=== PATIENT | female | born 1955 | race Caucasian/White ===

== ENCOUNTER 2017-12-31 11:15 | Emergency (ER) | payer OTHER ==
[~2017-12-31] VITALS: Ht 162.6 cm; Wt 90.7 kg
[~2017-12-31 11:15] MED LIST: AMOX500 PO; AZAT50 PO; Bupropion HCl150 M2 PO; CEPH500 PO; CLAR500 PO; CLIN150 PO; CYCL10 PO; ETAN50I IM; FURO40 PO; HYDACE10B PO; HYDACE7.5 PO; HYDSUL200 PO; Hydrocodone-Ap1 EA20 PO; IBUP800 PO; LISI20 PO; LORA1 PO; LORA2 PO; Leflunomide20 MG PO; MS Contin15 MG PO; NEBI5 PO; OMEP20ER PO; OMEP40CA12 PO; ONDA4ODT MM; OXYC5 PO; POTCHL20ER PO; PROM25 PO; Prednisone20 MG PO; RXCLIN PO; RXONDA4ODT MM; SULTRIDS PO; TRICOR; Zestril40 MG PO
[2017-12-31 12:33] LABS: BASOPHILS ABSOLUTE AUTO 0.03 K/mm3 (0.00-0.23); BASOPHILS PERCENT AUTO 0 % (0-2); EOSINOPHILS ABSOLUTE AUTO 0.04 K/mm3 (0.00-0.68); EOSINOPHILS PERCENT AUTO 0 % (0-6); Hemoglobin 14.6 g/dL (11.5-16.0); IMMATURE GRAN ABSOLUTE AUTO 0.05 K/mm3 (0.00-0.10); IMMATURE GRAN PERCENT AUTO 1 % (0-1); LYMPHOCYTES ABSOLUTE AUTO 1.58 K/mm3 (0.84-5.20); LYMPHOCYTES PERCENT AUTO 16 % (21-46); MONOCYTES ABSOLUTE AUTO 0.44 K/mm3 (0.16-1.47); MONOCYTES PERCENT AUTO 5 % (4-13); Mean Corpuscular HGB 29.7 pg (26.0-34.0); Mean Corpuscular HGB Conc 34.8 g/dL (31.5-36.5); Mean Corpuscular Volume 85 fL (80-100); Mean Platelet Volume 10.2 fL (9.1-12.4); NEUTROPHILS ABSOLUTE AUTO 7.54 K/mm3 (1.96-9.15); NEUTROPHILS PERCENT AUTO 78 % (41-73); Platelet Count 241 K/mm3 (150-400); RDW Coefficient Variation 12.4 % (11.7-14.2); RDW Standard Deviation 38.2 fL (35.1-46.3); Red Blood Cell Count 4.92 M/mm3 (3.80-5.20); White Blood Cell Count 9.68 K/mm3 (4.00-11.30)
[2017-12-31 14:45] LABS: Albumin, Blood 3.7 g/dL (3.4-5.0); Albumin/Globulin Ratio 0.9 (0.8-1.8); Alk Phos 122 U/L (50-136); Anion Gap 9 mmol/L (6-16); Aspartate Aminotrans (AST/SGOT 89 U/L (12-37); Blood Urea Nitrogen 10 mg/dL (8-24); CO2, Blood 23 mmol/L (21-32); Calcium, Blood 8.9 mg/dL (8.5-10.1); Chloride, Blood 106 mmol/L (98-108); Creatinine, Blood 0.77 mg/dL (0.40-1.00); Globulin, Blood 4.2 g/dL (2.2-4.0); Glomerular Filtration Rate >60 (60-); Glucose, Blood 166 mg/dL (70-99); Potassium, Blood 3.5 mmol/L (3.5-5.5); Sodium, Blood 138 mmol/L (136-145); Total Protein, Blood 7.9 g/dL (6.4-8.2)
[2017-12-31 15:50] LABS: Source, Urine Clean Catch
[2017-12-31 15:53] LABS: Bilirubin, Urine Neg (Neg); Blood, Urine 3+ (Neg); Glucose Qualitative, Urine Neg (Neg); Ketones, Urine Neg (Neg); Leukocyte Esterase, Urine Neg (Neg); Nitrite, Urine Pos (Neg); Protein, Urine Neg (Neg); Specific Gravity, Urine 1.025 (1.003-1.022); Urobilinogen, Urine NORM (Normal)
[2017-12-31 16:01] LABS: Appearance, Urine Clear (Clear); Color, Urine Yellow (P-Yellow)
[2017-12-31 16:03] LABS: Bacteria Many /hpf; Squamous Epithelial Cells Rare /hpf (Few)
[2017-12-31 16:07] LABS: Alanine Aminotransfer (ALT/SGP 130 U/L (12-78)
== END 2017-12-31 17:42 | disposition home or self-care (01) ==
LOC: ER 11:15
PROVIDERS: Emergency Medicine
DX: R10.30 Lower abdominal pain, unspecified (principal); Z88.8 Allergy status to other drugs, medicaments and biological substances; Z79.899 Other long term (current) drug therapy; Z79.891 Long term (current) use of opiate analgesic; I10 Essential (primary) hypertension; Z90.49 Acquired absence of other specified parts of digestive tract
CPT/HCPCS: 36415; 74022; 80053; 81001; 83690; 85025; 99283

== ENCOUNTER 2019-10-28 09:16 | Day surgery (SDC) | payer OTHER ==
--- NOTE | 2019-10-28 10:42 | NUR ---
PT TO STEP. BAND AID D/I. NO SWELLING OR BRUISING NOTED. DENIES PAIN. LYINBG ON RIGHT SIDE.
--- NOTE | 2019-10-28 11:00 | NUR ---
REPORT TO HEATHER QUIROGA RN.
--- NOTE | 2019-10-28 12:13 | NUR ---
WRITTEN AND VERBAL D/C INSTRUCTIONS GIVEN TO PT WITH STATED UNDERSTANDING.
== END 2019-10-28 23:58 | disposition home or self-care (01) ==
LOC: US 09:16
DX: K73.9 Chronic hepatitis, unspecified (principal); I10 Essential (primary) hypertension; E66.9 Obesity, unspecified; L40.50 Arthropathic psoriasis, unspecified; Z86.010 Personal history of colon polyps; Z68.38 Body mass index [BMI] 38.0-38.9, adult; Z79.899 Other long term (current) drug therapy
CPT/HCPCS: 47000; 76942; 88307; 88313

== ENCOUNTER → 2019-10-28 | Outpatient (CLI) | payer OTHER ==
[2019-12-01 06:08] LABS: CU WEIGHT 2.84 mg (.); HEPATIC COPPER CONCENTRATION 17.6 ug/g (15.0-55.0)
== END | disposition home or self-care (01) ==
LOC: LAB 09:40 → LAB SHORT 09:40
PROVIDERS: Internal Medicine Gastroenterology
DX: R74.8 Abnormal levels of other serum enzymes (principal)
CPT/HCPCS: 82525

== ENCOUNTER → 2021-12-11 | Outpatient (CLI) | payer OTHER ==
[2021-12-12 08:11] LABS: A/G RATIO 1.4 (1.2-2.2); ALKALINE PHOSPHATASE, S 154 IU/L (44-121); ALT (SGPT) 43 IU/L (0-32); AST (SGOT) 35 IU/L (0-40); BASOS 0 % (Not Estab.); BILIRUBIN, TOTAL 0.6 mg/dL (0.0-1.2); BUN 10 mg/dL (8-27); BUN/CREATININE RATIO 14 (12-28); CALCIUM, SERUM 8.7 mg/dL (8.7-10.3); CARBON DIOXIDE, TOTAL 23 mmol/L (20-29); CHLORIDE, SERUM 107 mmol/L (96-106); CHOLESTEROL, TOTAL 191 mg/dL (100-199); CREATININE, SERUM 0.74 mg/dL (0.57-1.00); EGFR IF AFRICN AM 99 (>59); EGFR IF NONAFRICN AM 86 (>59); EOS 1 % (Not Estab.); EOS (ABSOLUTE) 0.1 x10E3/uL (0.0-0.4); GLOBULIN, TOTAL 2.8 g/dL (1.5-4.5); GLUCOSE, SERUM 111 mg/dL (65-99); HDL CHOLESTEROL 27 mg/dL (>39); HEMATOCRIT 39.9 % (34.0-46.6); HEMOGLOBIN 13.5 g/dL (11.1-15.9); IMMATURE GRANULOCYTES 0 % (Not Estab.); LDL CHOLESTEROL CALC 110 mg/dL (0-99); LYMPHS 27 % (Not Estab.); LYMPHS (ABSOLUTE) 2.1 x10E3/uL (0.7-3.1); MCHC 33.8 g/dL (31.5-35.7); MCV 86 fL (79-97); MONOCYTES 6 % (Not Estab.); MONOCYTES(ABSOLUTE) 0.5 x10E3/uL (0.1-0.9); NEUTROPHILS 66 % (Not Estab.); NEUTROPHILS (ABSOLUTE) 5.3 x10E3/uL (1.4-7.0); PLATELETS 217 x10E3/uL (150-450); POTASSIUM, SERUM 3.9 mmol/L (3.5-5.2); PROTEIN, TOTAL, SERUM 6.8 g/dL (6.0-8.5); RBC 4.66 x10E6/uL (3.77-5.28); RDW 13.5 % (11.7-15.4); SODIUM, SERUM 141 mmol/L (134-144); TRIGLYCERIDES 309 mg/dL (0-149); VLDL CHOLESTEROL CAL 54 mg/dL (5-40)
[2021-12-12 23:09] LABS: HEMOGLOBIN A1C 6.3 % (4.8-5.6)
== END ==
LOC: LAB SHORT 14:11
PROVIDERS: Hospitalist
DX: E78.1 Pure hyperglyceridemia (principal); I10 Essential (primary) hypertension; R73.9 Hyperglycemia, unspecified
CPT/HCPCS: 80053; 80061; 83036; 85025

== ENCOUNTER → 2022-07-30 | Outpatient (CLI) | payer OTHER ==
[2022-07-30 15:43] LABS: BASOPHILS ABSOLUTE AUTO 0.04 K/mm3 (0.00-0.23); BASOPHILS PERCENT AUTO 1 % (0-2); EOSINOPHILS ABSOLUTE AUTO 0.07 K/mm3 (0.00-0.68); EOSINOPHILS PERCENT AUTO 1 % (0-6); Hematocrit 45.8 % (33.0-51.0); Hemoglobin 15.9 g/dL (11.5-16.0); IMMATURE GRAN ABSOLUTE AUTO 0.02 K/mm3 (0.00-0.10); IMMATURE GRAN PERCENT AUTO 0 % (0-1); LYMPHOCYTES ABSOLUTE AUTO 2.81 K/mm3 (0.84-5.20); LYMPHOCYTES PERCENT AUTO 37 % (21-46); MONOCYTES ABSOLUTE AUTO 0.36 K/mm3 (0.16-1.47); MONOCYTES PERCENT AUTO 5 % (4-13); Mean Corpuscular HGB 30.2 pg (26.0-34.0); Mean Corpuscular HGB Conc 34.7 g/dL (31.5-36.5); Mean Corpuscular Volume 87 fL (80-100); Mean Platelet Volume 11.7 fL (9.1-12.4); NEUTROPHILS ABSOLUTE AUTO 4.32 K/mm3 (1.96-9.15); NEUTROPHILS PERCENT AUTO 57 % (41-73); Platelet Count 298 K/mm3 (150-400); RDW Standard Deviation 41.6 fL (35.1-46.3); Red Blood Cell Count 5.26 M/mm3 (3.80-5.20); White Blood Cell Count 7.62 K/mm3 (4.00-11.30)
[2022-07-30 15:58] LABS: Alanine Aminotransfer (ALT/SGP 95 U/L (12-78); Albumin, Blood 3.7 g/dL (3.4-5.0); Albumin/Globulin Ratio 0.9 (0.8-1.8); Alk Phos 134 U/L (50-136); Anion Gap 7 mmol/L (6-16); Aspartate Aminotrans (AST/SGOT 79 U/L (12-37); Bilirubin, Total 1.1 mg/dL (0.1-1.0); Blood Urea Nitrogen 11 mg/dL (8-24); Bun/Creatinine Ratio 11.6 (12.0-20.0); CHOL/HDL RATIO 8.1; CO2, Blood 24 mmol/L (21-32); Calcium, Blood 9.2 mg/dL (8.5-10.1); Chloride, Blood 110 mmol/L (98-108); Cholesterol 202 mg/dL (50-200); Creatinine, Blood 0.95 mg/dL (0.40-1.00); Glomerular Filtration Rate 67 (60-); Glucose, Blood 115 mg/dL (70-99); HDL Cholesterol 25 mg/dL (>39); LDL/HDL RATIO 5.2; Low Density Lipoprotein Chol 130 mg/dL (0-110); Potassium, Blood 4.1 mmol/L (3.5-5.5); Sodium, Blood 141 mmol/L (136-145); Total Protein, Blood 7.7 g/dL (6.4-8.2); Triglycerides 235 mg/dL (30-160); Very Low Density Lipoprot Chol 47 mg/dL (6-32)
== END | disposition home or self-care (01) ==
LOC: LAB 10:00 → LAB SHORT 10:00
PROVIDERS: Hospitalist
DX: E78.1 Pure hyperglyceridemia (principal); R53.83 Other fatigue
CPT/HCPCS: 80053; 80061; 84443; 85025; 85651

== ENCOUNTER → 2023-07-23 | Outpatient (CLI) | payer OTHER | END | disposition home or self-care (01) | LOC: LAB SHORT 08:54 → LAB 08:54 | DX: R73.9 Hyperglycemia, unspecified (principal) | CPT/HCPCS: 83036 ==

== ENCOUNTER → 2024-05-19 | Outpatient (CLI) | payer OTHER ==
[2024-05-19 16:18] LABS: Anion Gap 7 mmol/L (3-11); Blood Urea Nitrogen 12 mg/dL (8-24); Bun/Creatinine Ratio 13.7 (12.0-20.0); CHOL/HDL RATIO 6.4; CO2, Blood 28 mmol/L (21-32); Calcium, Blood 9.2 mg/dL (8.5-10.1); Chloride, Blood 107 mmol/L (98-108); Cholesterol 187 mg/dL (50-200); Creatinine, Blood 0.88 mg/dL (0.40-1.00); Glomerular Filtration Rate 72 (60-); Glucose, Blood 152 mg/dL (70-99); HDL Cholesterol 29 mg/dL (>39); LDL/HDL RATIO 3.7; Low Density Lipoprotein Chol 106 mg/dL (0-110); Potassium, Blood 4.3 mmol/L (3.5-5.5); Sodium, Blood 138 mmol/L (136-145); Triglycerides 258 mg/dL (30-160); Very Low Density Lipoprot Chol 51 mg/dL (6-32)
[2024-05-19 17:18] LABS: Microalb/Creat Ratio UR, Rand 4.497 mg/g (0.000-30.000); Microalbumin, Random Urine 8.59 mg/L (0.000-20.000)
== END | disposition home or self-care (01) ==
LOC: LAB 13:51 → LAB SHORT 13:51
PROVIDERS: Hospitalist
DX: I10 Essential (primary) hypertension (principal); E11.69 Type 2 diabetes mellitus with other specified complication; E78.1 Pure hyperglyceridemia
CPT/HCPCS: 80048; 80061; 82043; 82570

== ENCOUNTER 2024-06-15 04:01 | Emergency (ER) | payer OTHER ==
[~2024-06-15] VITALS: Ht 172.7 cm; Wt 81.7 kg
[2024-06-15] MEDS ORDERED: METFORMIN HCL500 M3 PO (04:29)
[2024-06-15] MEDS ORDERED: ATEN25 PO (04:29)
[2024-06-15] MEDS ORDERED: LOSA50 PO (04:29)
[2024-06-15] MEDS ORDERED: PredniSONE 20 MG Tab PO ONE (04:30)
[2024-06-15] MEDS ORDERED: COSENTYX125 MG/5 M (04:30)
[2024-06-15] MEDS ORDERED: ValACYClovir HCL 500 MG Tab PO ONE (04:30)
[2024-06-15] MEDS ORDERED: VALA500 PO (04:35)
[2024-06-15] MEDS ORDERED: PRED20 PO (04:35)
[2024-06-15 04:44] VITALS: BP 173/80
== END 2024-06-15 04:45 | disposition home or self-care (01) ==
LOC: ER 04:01
DX: G51.0 Bell's palsy (principal); E11.9 Type 2 diabetes mellitus without complications; I10 Essential (primary) hypertension; M19.90 Unspecified osteoarthritis, unspecified site; Z79.899 Other long term (current) drug therapy; Z88.8 Allergy status to other drugs, medicaments and biological substances
CPT/HCPCS: A9270; J7512